=== PATIENT | male | born 1940 | race Caucasian/White ===

== ENCOUNTER 2021-10-03 05:59 | Day surgery (SDC) | payer MEDICARE ==
[~2021-10-03] VITALS: Ht 172.7 cm; Wt 77.2 kg
[~2021-10-03 05:59] MED LIST: ALIR75PE5 SQ; ALLO-45 PO; ASCO500 PO; ASPI-1444 PO; CHOL25TA4 PO; CLOP75TA60 PO; EZET10TA57 PO; FLUT1BLS3 IH; GLUC100019 PO; LOSA-381 PO; METF-1211 PO; METO-558 PO; PIOG15TA6 PO; SODIUM CHLORIDE 0.9% 1,000 ML IV ONE; TAMS-13 PO; UBID10CA6 PO
[2021-10-03] MEDS ORDERED: LIDOCAINE/PF 1% 30 ML VIAL ONE ×2 (07:12→08:50)
[2021-10-03] MEDS ORDERED: HEPARIN SODIUM 1000 UNITS/NS 0 ML ONE (07:12)
[2021-10-03] MEDS ORDERED: SODIUM BICARBONATE 50 MEQ/50 ML VIAL ONE ×2 (07:12→08:50)
[2021-10-03] MEDS ORDERED: IOHEXOL 350 MG/ML 100 ML VIAL ONE ×2 (07:12→08:50)
[2021-10-03] MEDS ORDERED: DiphenhydrAMINE HCL 50 MG CAPSULE PO ONE (07:30)
[2021-10-03] MEDS ORDERED: ASPIRIN 81 MG CHEWABLE TABLET PO ONE (07:30)
[2021-10-03] MEDS ORDERED: DIAZEPAM 5 MG TABLET PO ONE (07:30)
[2021-10-03] MEDS ORDERED: SODIUM CHLORIDE 0.9% 1,000 ML ONE (07:52)
[2021-10-03] MEDS ORDERED: DIAZEPAM 5 MG TABLET ONE (07:57)
[2021-10-03] MEDS ORDERED: DiphenhydrAMINE HCL 50 MG CAPSULE ONE (07:57)
[2021-10-03] MEDS ORDERED: ASPIRIN 81 MG CHEWABLE TABLET ONE (07:58)
[2021-10-03] MEDS ORDERED: ASPI-1450 PO (08:08)
[2021-10-03 08:27] LABS: GLUCOMETER DEV NAME(LOC) SDS.; GLUCOSE,POINT OF CARE 97 MG/DL (70-110)
[2021-10-03] MEDS ORDERED: HEPARIN SODIUM 1000 UNITS/NS 1,000 ML ONE (08:50)
[2021-10-03 09:11] VITALS: BP 154/72
[2021-10-03] MEDS ORDERED: FentaNYL CITRATE PF 100 MCG/2 ML VIAL ONE (09:17)
[2021-10-03] MEDS ORDERED: MIDAZOLAM HCL 2 MG/2 ML VIAL ONE (09:18)
[2021-10-03] MEDS ORDERED: HEPARIN SODIUM 1000 UNITS/NS 1,000 ML IARTER ONE (09:30)
[2021-10-03] MEDS ORDERED: IOHEXOL 350 MG/ML 100 ML VIAL IARTER ONE (09:30)
[2021-10-03] MEDS ORDERED: LIDOCAINE 1% 30 ML/SOD BICARB 8.4% 4 ML SQ ONE (09:30)
[2021-10-03] MEDS ORDERED: FentaNYL CITRATE PF 100 MCG/2 ML VIAL IVP ONE ×2 (09:30→09:45)
[2021-10-03] MEDS ORDERED: MIDAZOLAM HCL 2 MG/2 ML VIAL IVP ONE ×2 (09:30→09:45)
[2021-10-03] MEDS ORDERED: NALOXONE HCL 0.4 MG/ML VIAL ONE (09:37)
[2021-10-03] MEDS ORDERED: FLUMAZENIL 0.1 MG/ML 5 ML VIAL IVP ONE (09:38)
[2021-10-03] MEDS ORDERED: HEPARIN SODIUM,PORCINE 5,000 UNITS/ML VIAL IVP ONE (10:00)
[2021-10-03 10:31] VITALS: BP 142/72
== END 2021-10-03 15:13 | disposition home or self-care (01) ==
LOC: CATHLAB 05:59
PROVIDERS: ATTEND Internal Medicine Interventional Cardiology
DX: R07.9 Chest pain, unspecified (principal); I25.10 Atherosclerotic heart disease of native coronary artery without angina pectoris; I25.2 Old myocardial infarction; E11.9 Type 2 diabetes mellitus without complications; E78.5 Hyperlipidemia, unspecified; Z79.4 Long term (current) use of insulin; Z79.899 Other long term (current) drug therapy; Z88.0 Allergy status to penicillin; Z98.890 Other specified postprocedural states
CPT/HCPCS: 93458; 82962; 99152; 99153; 93005; C1760; J3010; J1644; J3490 ×2; J2250; J2310; Q9967; J7030